=== PATIENT | female | born 1950 | race Caucasian/White ===

== ENCOUNTER 2020-08-02 17:16 | Emergency (ER) | payer MEDICARE, SELFPAY ==
[2020-08-02 17:31] VITALS: BP 158/73; PULSE 107; RESP 18; TEMP 36.7; O2SAT 97; BMI 25.3
--- NOTE | 2020-08-02 17:37 | HMH.EDUTC ---
[facility] [place] Impression: UTI (urinary tract infection) Qualifiers: Urinary tract infection type: site unspecified Hematuria presence: with hematuria Qualified Code(s): N39.0 - Urinary tract infection, site not specified; R31.9 - Hematuria, unspecified Disposition: Home, Self-Care Condition on Discharge: Good Instructions: Urinary Tract Infection, DI for Urinary Tract Infection (UTI), Phenazopyridine Additional Instructions: Drink plenty of fluids. Take tylenol or ibuprofen for pain or fever. Take the medications as directed. Follow up with your regular doctor. GO TO THE ER FOR ANY WORSENING SYMPTOMS The pyridium will make your urine turn orange, this is an expected side effect. It will stain your clothes if it comes into contact with them. Prescriptions: Ondansetron [Zofran 4mg ODT] 4 mg PO Q8HP PRN #10 tab.rapdis PRN Reason: Nausea Transmission Status: Pending to [id number] Ciprofloxacin HCl [Cipro 500mg Tab] 500 mg PO BID 7 Days #14 tab Transmission Status: Pending to [facility] Phenazopyridine HCl [Pyridium 200mg Tablet] 200 pow PO TID #6 tab Transmission Status: Pending to [id number] Referrals: Jayden Christie MD [Primary Care Provider] - Time of Disposition: 17:50 Medical Decision Making - Medical Records Medical records reviewed: No: I reviewed the patient's medical records. - Charles Inquiry Pt receiving controlled substance: No Vital Signs: 08/02/20 17:31 Temperature 98.1 F Temperature Source Oral Pulse Rate [Radial] 107 H Respiratory Rate 18 Blood Pressure [Right Arm] 158/73 H Blood Pressure Mean [Right Arm] 101 Blood Pressure Source [Right Arm] Automatic Cuff Blood Pressure Position [Right Arm] Sitting 02 Sat by Pulse Oximetry 97 Oxygen Delivery Method Room Air - Lab Data Lab results reviewed: Yes: I reviewed the patient's lab results. [facility] [place] - General Stated complaint: possible uti Time Seen by Provider: 08/02/20 17:37 Mode of Arrival: Ambulatory Source of Information: Patient Limitations: No Limitations Description of Symptoms (Recalled from Triage Doc. by RN): Thinks she has a UTI. Feels pressure HEENT Symptoms (Recalled from RN notes): No Resp Symptoms (Recalled from RN notes): No Skin Symptoms (Recalled from RN notes): No MS Symptoms (Recalled from RN notes): No Functional Status (Recalled from RN notes): wnl - History of Present Illness Provider Complaint: She states that for the past 2 days she has been having dysuria and urinary frequency. She denies any fever or other complaints. - Related Data Home Medications Medication Instructions Recorded Confirmed Levothyroxine Sodium 50 mcg PO DAILY 04/18/18 09/17/18 [Levothyroxine 50mcg (0.05mg) Tab] Lisinopril/Hydrochlorothiazide 1 tab PO DAILY 04/18/18 09/17/18 [Lisinopril-Hctz 10-12.5 mg Tab] Previous Rx's Medication Instructions Recorded hydrOXYzine pamoate [Vistaril] 25 mg PO Q6HP PRN #30 cap 07/02/19 Ciprofloxacin HCl [Cipro 500mg 500 mg PO BID 7 Days #14 tab 08/02/20 Tab] Ondansetron [Zofran 4mg ODT] 4 mg PO Q8HP PRN #10 tab.rapdis 08/02/20 Phenazopyridine HCl [Pyridium 200 pow PO TID #6 tab 08/02/20 200mg Tablet] Allergies Allergy/AdvReac Type Severity Reaction Status Date / Time Sulfa (Sulfonamide Allergy Verified 09/03/18 09:58 Antibiotics) - Worker's Comp Is this a Worker's Comp case?: No [facility] History - Hepatitis A Screen Drug use history?: No High risk sexual behaviors?: No History of sexually transmitted infection?: No Currently employed?: No Childcare worker?: No Do you have indoor plumbing?: Yes Do you have electricity?: Yes Attestation statement:: This patient has been screened for Hepatitis A risk factors. I have reviewed the patient's past medical history: Yes Medical History: Reports:: Hypertension Denies:: Diabetes Mellitus Type 1, Diabetes Mellitus Type 2 Later
[2020-08-02 18:16] LABS: Apearance,Urine Clear (Clear); Color,Urine Yellow (Yellow); Glucose,Urine (UA) Negative (Negative); PH,Urine 5.5 (5.0-8.5); Protein,Urine Negative (Negative)
[2020-08-02 18:17] LABS: Bilirubin,Urine Negative (Negative); Blood, Urine Trace (Negative); Ketones,Urine Negative (Negative); UTC Leukocyte Esterase,Urine 1+ (Negative); UTC Nitrate,Urine Negative (Negative); Urobilinogen,Urine 0.2 EU/dl (0.2)
[2020-08-02 18:20] VITALS: BP 158/73; PULSE 107; RESP 18; TEMP 36.7; O2SAT 97
== END 2020-08-02 18:21 | disposition home or self-care (01) ==
PROVIDERS: Emergency Provider Nurse Practitioner Family; PCP Internal Medicine Adolescent Medicine
DX: N30.00 Acute cystitis without hematuria (principal); I10 Essential (primary) hypertension; Z90.49 Acquired absence of other specified parts of digestive tract; Z88.2 Allergy status to sulfonamides
CPT/HCPCS: 81003; 87086; 87088; 87186; 99201

== ENCOUNTER → 2020-09-07 07:52 | Outpatient (CLI) | payer MEDICARE, SELFPAY ==
--- NOTE | 2020-09-07 07:55 | MM_ITS ---
PROCEDURE: MM DIG SCREENING MAMM BI W/CAD Digital Breast Tomosynthesis Included CLINICAL INDICATION: SCREENING There is no personal or family history of breast cancer. There has been a previous biopsy right breast for benign disease. COMPARISON: MG DMSB DIGITAL MAMM-SCREEN BILATERAL from 10/07/2012 MG DMSB DIG MAMM-SCREEN DEVANTE from 06/15/2016 MG DMDXUAVR DIG MAMM-DX UNI ADD VIEWS-RT from 06/27/2016 TECHNIQUE: Standard CC and MLO images and 3D Tomosynthesis was obtained. R2 CAD reviewed. FINDINGS: Moderate scattered fibroglandular densities are seen in the central portions of both breasts. There has been some slight interval fatty replacement of the breast parenchyma when compared to the most recent study 06/15/2016. There is faint arterial calcification in each breast. There is a small benign-appearing nodular lesion just deep to the nipple right breast and there are 2 similar small benign-appearing nodular lesions central portion left breast. There is no suspicious lesion in either breast and no suspicious microcalcifications. IMPRESSION: Moderate diffuse breast density with no suspicious lesions seen BI-RAD Category: 2 Benign Finding(s) FOLLOW-UP: 1YR 1 Year Follow-up (A letter has been sent to the patient regarding results of the study.) Dictated by: Dr. Rene Rivera MD 09/08/2020 12:25 Dr. Rene Rivera MD in [place] 09/08/2020 12:25
== END ==
PROVIDERS: PCP Internal Medicine Adolescent Medicine; Visit Provider Obstetrics & Gynecology Gynecology
DX: Z12.31 Encounter for screening mammogram for malignant neoplasm of breast (principal)
CPT/HCPCS: 77063; 77067

== ENCOUNTER 2021-06-21 15:48 | Emergency (ER) | payer MEDICARE, SELFPAY ==
[2021-06-21 16:00] VITALS: BP 127/62; PULSE 95; RESP 16; TEMP 37.1; O2SAT 98; BMI 23.3
[2021-06-21 16:21] VITALS: BP 127/62; PULSE 95; RESP 16; TEMP 37.1; O2SAT 98; BMI 23.3
--- NOTE | 2021-06-21 17:05 | HMH.EDUTC ---
[facility] [place]: Subconjunctival hemorrhage Qualifiers: Laterality: left Qualified Code(s): H11.32 - Conjunctival hemorrhage, left eye Disposition: Home, Self-Care Condition on Discharge: Good Instructions: DI for Subconjunctival Hemorrhage Additional Instructions: Follow up with your primary care doctor. If you begin to have eye pain, decreased vision or any other concerning symptom, please return and go to the ER. Read the Subconjunctival hemorrhage hand out that we gave you. It will answer most of your questions. Referrals: Jayden Christie MD [Primary Care Provider] - Time of Disposition: 17:13 Medical Decision Making - Medical Records Medical records reviewed: No: I reviewed the patient's medical records. - Charles Inquiry Pt receiving controlled substance: No Vital Signs: 06/21/21 16:00 06/21/21 16:21 06/21/21 17:20 Temperature 98.7 F 98.7 F 98.7 F Temperature Source Oral Oral Pulse Rate 95 H Pulse Rate [Left Radial] 95 H 95 H Respiratory Rate 16 16 16 Blood Pressure 127/62 Blood Pressure [Left Arm] 127/62 127/62 Blood Pressure Mean [Left Arm] 83 83 Blood Pressure Source [Left Arm] Automatic Cuff Automatic Cuff Blood Pressure Position [Left Arm] Sitting Sitting 02 Sat by Pulse Oximetry 98 98 Oxygen Delivery Method Room Air Room Air [facility] [place] - General Stated complaint: busted blood vessel in lt eye Time Seen by Provider: 06/21/21 17:05 Mode of Arrival: Ambulatory Source of Information: Patient Limitations: No Limitations Description of Symptoms (Recalled from Triage Doc. by RN): PATIENT C/O POSSIBLE BUSTED BLOOD VESSEL TO LEFT EYE THAT SHE NOTICED AFTER TAKING HER DOG TO PARK THIS MORNING. C/O STINGING FEELING TO EYE, NO CHANGE IN VISION. REPORTS THAT SHE IS NOT ON BLOOD THINNERS. VISION CHECKED: DEVANTE EYES 20/25, RIGHT EYE 20/25, LEFT EYE 20/25 HEENT Symptoms (Recalled from RN notes): Yes Resp Symptoms (Recalled from RN notes): No Skin Symptoms (Recalled from RN notes): No MS Symptoms (Recalled from RN notes): No Functional Status (Recalled from RN notes): WNL - History of Present Illness Provider Complaint: She states that earlier today she was on a walk and she felt a mild irritation to her left eye. When she got home she looked in the mirror and noticed there was blood in the white of her eye. She denies any eye pain. She denies any decreased vision in that eye. She does not take blood thinners. - Related Data Home Medications Medication Instructions Recorded Confirmed Levothyroxine Sodium 50 mcg PO DAILY 04/18/18 06/21/21 [Levothyroxine 50mcg (0.05mg) Tab] lisinopriL [Lisinopril] 10 mg PO DAILY 06/21/21 06/21/21 Allergies Allergy/AdvReac Type Severity Reaction Status Date / Time Sulfa (Sulfonamide Allergy Verified 09/03/18 09:58 Antibiotics) - Worker's Comp Is this a Worker's Comp case?: No [facility] History - Hepatitis A Screen Drug use history?: No High risk sexual behaviors?: No History of sexually transmitted infection?: No Currently employed?: No Childcare worker?: No Do you have indoor plumbing?: Yes Do you have electricity?: Yes Attestation statement:: This patient has been screened for Hepatitis A risk factors. I have reviewed the patient's past medical history: Yes Medical History: Reports:: Hypertension Denies:: Diabetes Mellitus Type 1, Diabetes Mellitus Type 2 Laterality Cases: Bilateral: Tonsillectomy Other Surgeries: Yes: Cholecystectomy, Tubal Ligation, Other (knee) Fractures: Yes (FOOT) - Social History Smoking Status: Never smoker Alcohol Intake: never Substance Use Type: denies use Occupational Status: other Family Hx:: Heart Attack, Hypertension ROS Obtained: Yes All systems reviewed & no additional complaints - Constitutional Constitutional: Denies chills, Denies fever(s) - Eyes Eyes: Reports as per HPI - ENT Ears, Nose, Mouth, and Throat: Denies dizziness, Denies otalgia - [facility]
[2021-06-21 17:20] VITALS: BP 127/62; PULSE 95; RESP 16; TEMP 37.1; O2SAT 98
== END 2021-06-21 17:21 | disposition home or self-care (01) ==
PROVIDERS: Emergency Provider Nurse Practitioner Family; PCP Internal Medicine Adolescent Medicine
DX: H11.32 Conjunctival hemorrhage, left eye (principal); I10 Essential (primary) hypertension
CPT/HCPCS: G0463; 99202

== ENCOUNTER → 2021-09-22 15:57 | Outpatient (CLI) | payer MEDICARE, SELFPAY ==
--- NOTE | 2021-09-22 16:00 | MM_ITS ---
PROCEDURE INFORMATION: Exam: MG Bilateral Screening 3D Mammography Exam date and time: 09/22/2021 4:00 PM Age: 71 years old Clinical indication: Screening exam; No personal or family HX of malignancy TECHNIQUE: Imaging protocol: Bilateral screening tomosynthesis and 2D mammography including computer-aided detection (CAD) when performed. COMPARISON: 1. MG MM DIG SCREENING MAMM BI W/CAD 09/07/2020 8:06 AM 2. MG DMDXUAVR DIG MAMM-DX UNI ADD VIEWS-RT 06/27/2016 1:22 PM FINDINGS: MAMMOGRAPHY: Breast composition: The breast tissue is heterogeneously dense, which may obscure small masses. Mass: None. Architectural distortion: None. Calcifications: No suspicious calcifications. Asymmetric density: None. Skin thickening: None. Axillary adenopathy: None. IMPRESSION: No mammographic evidence of malignancy. Annual screening is recommended unless otherwise clinically indicated. ASSESSMENT: BI-RADS Category 1: Negative
== END ==
PROVIDERS: PCP Internal Medicine Adolescent Medicine; Visit Provider Internal Medicine Adolescent Medicine
DX: Z12.31 Encounter for screening mammogram for malignant neoplasm of breast (principal)
CPT/HCPCS: 77063; 77067

== ENCOUNTER → 2021-10-13 09:31 | Outpatient (CLI) | payer MEDICARE, SELFPAY ==
[2021-10-13 10:01] LABS: Basophils # 0.1 K/mm3 (0-0.2); Basophils % 1.4 % (0.1-2.0); Eosinophils # 0.1 K/mm3 (0.0-0.4); Eosinophils % 2.3 % (0.1-12.0); Hemoglobin 13.7 g/dL (12.2-16.2); Lymphocytes # 1.3 K/mm3 (0.7-4.5); Lymphocytes % 24.1 % (10-50); Mean Corpuscular HGB Conc 33.4 g/dL (31.8-35.4); Mean Corpuscular Hemoglobin 31.2 pg (27.0-31.2); Mean Corpuscular Volume 93.4 fl (81-99); Mean Platelet Volume 8.3 fl (7.4-10.4); Monocytes # 0.3 K/mm3 (0.1-1.0); Monocytes % 5.5 % (1.7-9.3); Neutrophils # 3.7 K/mm3 (1.8-7.8); Neutrophils % 66.6 % (37.0-80.0); Platelet Count 361 K/mm3 (142-424); Red Blood Count 4.39 M/mm3 (4.20-5.40); Red Cell Distribution Width 12.7 % (11.5-17.5); White Blood Count 5.5 K/mm3 (4.8-10.8)
[2021-10-13 10:32] LABS: Alanine Aminotransferase 28 U/L (12-78); Albumin Level 4.5 g/dl (3.5-5.0); Alkaline Phosphatase 93 U/L (38-126); Anion Gap 8.9 mEq/L (5-15); Aspartate Amino Transferase 35 U/L (14-36); Bilirubin,Total 0.2 mg/dl (0.2-1.3); Blood Urea Nitrogen 14 mg/dl (7-17); Calcium 10.2 mg/dl (8.4-10.2); Carbon Dioxide 32 mmol/L (22.0-30.0); Chloride 104 mmol/L (98-107); Cholesterol 208 mg/dl (140-200); Estimated Glomerular Filt Rate 83 ml/min (>60); GFR (African American) 100 ML/MIN (>60); Globulin 2.3 g/dL (1.3-3.2); Glucose 99 mg/dl (74-100); HDL Cholesterol 70 mg/dl (40-60); Potassium 4.9 mmoL/L (3.5-5.1); Sodium 140 mmol/L (136-145); Total Protein,Serum 6.8 g/dl (6.3-8.2); Triglycerides 87 mg/dl (30-150); VLDL Cholesterol 17 mg/dL (0-40)
[2021-10-13 10:42] LABS: Direct LDL Cholesterol 104.31 mg/dL (100-129)
[2021-10-13 10:48] LABS: Triiodothryronine (T3) Uptake 28 % (23.5-40.5)
[2021-10-13 10:49] LABS: Free Thyroxine Index 3.3 ug/dL (5.93-13.13); T4 (Thyroxine) 11.8 ug/dl (5.53-11.0)
[2021-10-13 11:03] LABS: Thyroid Stimulating Hormone 1.79 uIU/mL (0.465-4.68)
== END ==
PROVIDERS: Visit Provider Internal Medicine Adolescent Medicine
DX: E03.9 Hypothyroidism, unspecified (principal); E78.5 Hyperlipidemia, unspecified
CPT/HCPCS: 36415; 80053; 80061; 84436; 84443; 84479; 85025

== ENCOUNTER → 2022-09-29 07:39 | Outpatient (CLI) | payer MEDICARE, SELFPAY ==
--- NOTE | 2022-09-29 07:46 | MM_ITS ---
PROCEDURE INFORMATION: Exam: MG Bilateral Screening 3D Mammography Exam date and time: 09/29/2022 7:53 AM Age: 72 years old Clinical indication: Screening examination. No family history of breast cancer. TECHNIQUE: Imaging protocol: Bilateral Screening tomosynthesis and 2D mammography including computer-aided detection (CAD) when performed. COMPARISON: 1. MG MM DIG SCREENING MAMM BI W/CAD 09/22/2021 4:19 PM 2. MG MM DIG SCREENING MAMM BI W/CAD 09/07/2020 8:06 AM 3. MG DMDXUAVR DIG MAMM-DX UNI ADD VIEWS-RT 06/27/2016 1:22 PM 4. MG DMSB DIG MAMM-SCREEN DEVANTE 06/15/2016 10:55 AM FINDINGS: MAMMOGRAPHY: Breast composition: The breasts are heterogeneously dense, which may obscure small masses. Mass: None. Architectural distortion: None. Calcifications: No suspicious calcifications. Asymmetric density: None. Skin thickening: None. Axillary adenopathy: None. IMPRESSION: No mammographic evidence of malignancy. Annual screening is recommended unless otherwise clinically indicated. ASSESSMENT: BI-RADS Category 1: Negative
== END ==
PROVIDERS: PCP Internal Medicine Adolescent Medicine; Visit Provider Internal Medicine Adolescent Medicine
DX: Z12.31 Encounter for screening mammogram for malignant neoplasm of breast (principal)
CPT/HCPCS: 77063; 77067

== ENCOUNTER 2022-10-13 09:38 | Day surgery (SDC) | payer MEDICARE, SELFPAY ==
[2022-10-09 13:48] VITALS: BMI 23.3
[2022-10-13 10:01] VITALS: BP 108/87; PULSE 89; RESP 18; TEMP 36.7; O2SAT 98
--- NOTE | 2022-10-13 10:11 | P.PN_ITS ---
[facility] Disclaimer: The information contained in this section may have been updated after the patient was seen, as this information can be updated by other users. Medical History Allergies Cholecystectomy planned Hypertension Hypothyroid Sinus headache Tonsillectomy planned Urinary tract infection Surgical History History of surgery History of surgery Family History Daughter Polycystic kidney disease Mother Colon cancer Father Heart attack Social History Smoking Status: Former smoker alcohol intake: never substance use type: denies use current occupational status: retired Travel in the last 8 weeks: None [facility] Anesthesia Checklist Patient Identification Patient Identification: Arm Band and Verbal (Name & ) Structural Data Admitted From: Home Planned Operative Procedure/s: Colonoscopy Consent for Planned Operative Procedure(s) Verified: Yes NPO Status Verified Time NPO: 00:00 Chart Verification Results Verified: CBC and BMP Airway Assessment C-Spine Mobility Assessed: Yes TMJ Mobility Assessed: Yes Dentition: Good Dentition Neurological Assessment Level of Consciousness: Awake Hx Seizures: No Numbness or tingling in extremities: No Anesthesia Plan Anesthesia Plan: Verified ASA Class: II Anesthesia Type: MAC
[2022-10-13 10:35] VITALS: O2SAT 98
[2022-10-13 11:11] VITALS: BP 80/49; PULSE 79; RESP 18; TEMP 36.4; O2SAT 96
--- NOTE | 2022-10-13 11:11 | HMH.SCOPE ---
Procedure: Date: 10/13/22 Patient Date of :: 1950 Procedure Performed:: Total colonoscopy with polypectomy by biopsy Indications:: Patient is a 72-year-old female. She has a family history of her mother having colon cancer in her 50s. She had undergone colonoscopy with Dr. Tin Silvestre in 2008. I performed colonoscopy 07/25/2016 at which time she had diverticulosis and sigmoid polyp. 3 to 5-year follow-up colonoscopy was recommended. Performing Provider:: Maximino Norris MD Referring Provider:: Jayden Christie MD Sedation:: MAC sedation Procedure:: Patient history was obtained and appropriate physical examination was performed. Patient's medications and allergies were reviewed. Informed consent was obtained after explaining the benefits, alternatives, and risks of the procedure including, but not limited to, bleeding, perforation, missed lesions, and adverse reaction to anesthesia medications. Patient was transported to endoscopy procedure room. Patient was connected to monitoring devices. Throughout the procedure the patient's blood pressure, pulse, and oxygen saturations were monitored continuously. Patient identification and planned procedure were verified by the staff. Patient was positioned in lateral decubitus position. Digital anorectal exam was performed. Variable stiffness Olympus colonoscope was inserted and advanced under direct visualization to the cecum. Adequacy of the colonic preparation was noted. The colonoscope was advanced a short distance into the ileocecal valve. The colonoscope was then slowly withdrawn while carefully examining the color, texture, anatomy, and integrity of the mucosoa circumferentially. Within the rectum retroflexion was performed. Colonoscope was then withdrawn. Impression: Colonic preparation was good. There was a subtle irregularity in the sigmoid which was biopsied, potential lymphoid aggregate versus normal colon. There was a diminutive hyperplastic appearing rectosigmoid polyp removed with biopsy forceps. She had significant pandiverticulosis. Findings:: Significant pandiverticulosis Minor tiny diminutive mucosal irregularity sigmoid colon biopsied Hyperplastic appearing rectosigmoid polyp removed with biopsy forceps Recommendations:: Likely repeat colonoscopy 5 years. However, consideration could be given for possible Cologuard testing at that time. Complications:: None immediately apparent Estimated blood obtained (mL): 1
[2022-10-13 11:21] VITALS: BP 123/59; PULSE 59; RESP 18; O2SAT 100
[2022-10-13 11:31] VITALS: BP 106/40; PULSE 69; RESP 18; O2SAT 99
[2022-10-13 11:41] VITALS: BP 118/60; PULSE 70; RESP 18; O2SAT 99
== END 2022-10-13 11:50 | disposition home or self-care (01) ==
PROVIDERS: PCP Internal Medicine Adolescent Medicine; Visit Provider Surgery
PROC: 0DJD8ZZ Inspection of Lower Intestinal Tract, Via Natural or Artificial Opening Endoscopic (ICD-10-PCS; principal; 2022-10-13 10:30)
DX: Z12.11 Encounter for screening for malignant neoplasm of colon (principal); K63.5 Polyp of colon; Z80.0 Family history of malignant neoplasm of digestive organs; Z86.010 Personal history of colon polyps; Z79.899 Other long term (current) drug therapy
CPT/HCPCS: 45380; 88305

== ENCOUNTER → 2023-02-26 09:26 | Outpatient (CLI) | payer MEDICARE, SELFPAY | PROVIDERS: PCP Internal Medicine Adolescent Medicine; Visit Provider Nurse Practitioner Family | DX: R00.2 Palpitations (principal) | CPT/HCPCS: 93270 ==

== ENCOUNTER → 2023-03-02 07:43 | Outpatient (CLI) | payer MEDICARE, SELFPAY | PROVIDERS: PCP Internal Medicine Adolescent Medicine; Visit Provider Nurse Practitioner Family | DX: R00.2 Palpitations (principal) | CPT/HCPCS: 93306 ==

== ENCOUNTER → 2023-10-16 06:31 | Outpatient (CLI) | payer MEDICARE, SELFPAY ==
--- NOTE | 2023-10-16 06:36 | NM_ITS ---
APPROVED REPORT Exam: Nuclear Stress Test Indication: palpitations Patient Location: Outpatient Stress Tech: Gema Bryant OR Tech:NICOLE Ponce RT (R)(N)(M) Ht: 5 ft 5 in Wt: 161 lbs Bra Size: b HR: 88 bpm BP: 156/67 mmHg BSA: 1.80 m2 Rhythm: NSR TID: 0.96 BMI: 26.7 History: patpitations Procedure: Patient received 0.4 mg of intravenous Lexiscan, resting heart rate 88 bpm, resting blood pressure 156/67 mmHg, with Lexiscan maximum heart rate achieved was 88 bpm which is 85 % of the maximum predicted heart rate and blood pressure was 156/67 mmHg. With Lexiscan, patient denied any complaint of chest pain. Cardiac Stress and Resting SPECT Images: Cardiac Stress and Resting SPECT images were obtained using technetium 99m Myoview 31.1 mCi stress and 10.89 mCi at rest. Resting and stress imaging in supine and prone positions demonstrate no evidence of fixed or reversible perfusion defects. Gated imaging demonstrates low normal global LV systolic function. LVEF is calculated at 52%. Conclusion: No evidence of fixed or reversible perfusion defects. Gated imaging demonstrates low normal global LV systolic function. LVEF is calculated at 52%. Of note, the LVEF may be inaccurate in the setting of frequent PVCs. Of note, the patient had frequent PVCs at baseline and after Lexiscan administration. Further evaluation of the PVC burden is recommended with 2-week rhythm monitor. Electronically signed by : Juana Noriega MD 10/18/2023 14:54:28
--- NOTE | 2023-10-16 10:09 | CA_ITS ---
APPROVED REPORT Exam: Pharmacologic Technologist: Gema Bryant Ht: 5 ft 6 in Wt: 161 lbs BSA: 1.82 m2 HR: 88 bpm BP: 156/57 mmHg Rhythm: NSR Indications: Abnormal ekg, Fatigue Medical History Medications: Lisinopril,,,,, Levothyroxine,,,,, BisOPROLOL,,,,, Stress Test Details Test: LEXISCAN HR Resting HR: 70 bpm Max Heart Rate (APMHR): 148 bpm Max HR Achieved: 110 bpm Target HR (85% APMHR): 126 bpm % of APMHR: 74 Recovery HR: 80 bpm BP Resting BP: 156.0/67.0 mmHg Max BP: 156.0/67.0 mmHg Recovery BP: 143.0/77.0 mmHg ECG Resting ECG: Sinus rhythm, Trigeminy PVCs Stress ECG: No significant ST changes Arrhythmia: Frequent PVCs, ventricular couplets Clinical Exercise duration: 04:19 min Highest Stage Achieved: Stress ECG Conclusion Symptoms: Headache Arrhythmias/Ectopy: Frequent PVCs, ventricular couplets ST-T Changes: No significant ST changes Conclusion: No significant ST changes after Lexiscan administration. Frequent PVCs at baseline and after Lexiscan administration. Myoview images are reported separately. Test Summary REST . . . . . . . Resting REST 03:26 . . 70 . 156/ 67 . . Stage 1 . . . . . . . Myoview Injected Stage 1 01:00 . . 100 . . . . Stage 2 01:00 . . 104 . 128/ 63 . . Stage 3 01:00 . . 93 . 147/ 66 . . Stage 4 01:00 . . 93 . 139/ 70 . . Stage 4 01:19 . . 79 . 139/ 70 . Stop exercise at 04:19 RECOVERY 01:00 . . 83 . 133/ 71 . . RECOVERY 02:00 . . 87 . 133/ 71 . . RECOVERY 03:00 . . 88 . 133/ 71 . . RECOVERY 03:38 . . 75 . 143/ 77 . . Electronically signed by : Juana Noriega MD 10/18/2023 14:52:42
== END ==
PROVIDERS: PCP Internal Medicine Adolescent Medicine; Visit Provider Nurse Practitioner
DX: I10 Essential (primary) hypertension (principal); R00.2 Palpitations; R53.83 Other fatigue; R94.31 Abnormal electrocardiogram [ECG] [EKG]
CPT/HCPCS: 78452; 93017; 93018; A9502; J2785

== ENCOUNTER → 2023-10-26 08:15 | Outpatient (CLI) | payer MEDICARE, SELFPAY ==
--- NOTE | 2023-10-26 08:18 | MM_ITS ---
PROCEDURE INFORMATION: Exam: MG Bilateral Screening 3D Mammography Exam date and time: 10/26/2023 8:17 AM Age: 73 years old Clinical indication: Screening mammogram TECHNIQUE: Imaging protocol: Bilateral Screening tomosynthesis and 2D mammography including computer-aided detection (CAD) when performed. COMPARISON: 1. MG MM DIG SCREENING MAMM BI W/CAD 09/29/2022 7:53 AM 2. MG MM DIG SCREENING MAMM BI W/CAD 09/22/2021 4:19 PM 3. MG MM DIG SCREENING MAMM BI W/CAD 09/07/2020 8:06 AM 4. MG DMDXUAVR DIG MAMM-DX UNI ADD VIEWS-RT 06/27/2016 1:22 PM FINDINGS: MAMMOGRAPHY: Breast composition: There are scattered areas of fibroglandular density. Mass: None. Architectural distortion: No new or suspicious architectural distortion. Calcifications: No new or suspicious calcifications are present Asymmetric density: No new or suspicious asymmetric density is present Skin thickening: None. Axillary adenopathy: None. IMPRESSION: No mammographic evidence of malignancy. Recommend annual screening mammography unless otherwise clinically indicated. ASSESSMENT: BI-RADS category 1: Negative
== END ==
PROVIDERS: PCP Internal Medicine Adolescent Medicine; Visit Provider Internal Medicine Adolescent Medicine
DX: Z12.31 Encounter for screening mammogram for malignant neoplasm of breast (principal)
CPT/HCPCS: 77063; 77067

== ENCOUNTER → 2023-10-29 09:42 | Outpatient (CLI) | payer MEDICARE, SELFPAY ==
[2023-10-29 10:19] LABS: Basophils % 0.6 % (0.1-2.0); Eosinophils # 0.2 K/mm3 (0.0-0.4); Eosinophils % 2.3 % (0.1-12.0); Hematocrit 41.8 % (37.0-47.0); Hemoglobin 14.1 g/dL (12.2-16.2); Lymphocytes # 1.4 K/mm3 (0.7-4.5); Lymphocytes % 21.7 % (10-50); Mean Corpuscular HGB Conc 33.8 g/dL (31.8-35.4); Mean Corpuscular Hemoglobin 31.5 pg (27.0-31.2); Mean Platelet Volume 7.3 fl (7.4-10.4); Monocytes # 0.3 K/mm3 (0.1-1.0); Monocytes % 4.8 % (1.7-9.3); Neutrophils # 4.6 K/mm3 (1.8-7.8); Neutrophils % 70.6 % (37.0-80.0); Platelet Count 318 K/mm3 (142-424); Red Blood Count 4.49 M/mm3 (4.20-5.40); Red Cell Distribution Width 12.8 % (11.5-17.5); White Blood Count 6.6 K/mm3 (4.8-10.8)
[2023-10-29 10:54] LABS: Alanine Aminotransferase 25 U/L (12-78); Albumin Level 4.7 g/dl (3.5-5.0); Albumin/Globulin Ratio 1.7 (1.1-1.8); Alkaline Phosphatase 76 U/L (38-126); Anion Gap 8.1 mEq/L (5-15); Aspartate Amino Transferase 33 U/L (14-36); Bilirubin,Total 0.3 mg/dl (0.2-1.3); Blood Urea Nitrogen 14 mg/dl (7-17); Calcium 9.9 mg/dl (8.4-10.2); Carbon Dioxide 31 mmol/L (22.0-30.0); Chloride 104 mmol/L (98-107); Chol/HDL Ratio 2.8 (1-3.5); Cholesterol 225 mg/dl (140-200); Estimated Glomerular Filt Rate 71 ml/min (>60); GFR (African American) 85 ML/MIN (>60); Globulin 2.7 g/dL (1.3-3.2); Glucose 102 mg/dl (74-100); HDL Cholesterol 80 mg/dl (40-60); Potassium 5.1 mmoL/L (3.5-5.1); Sodium 138 mmol/L (136-145); Total Protein,Serum 7.4 g/dl (6.3-8.2); Triglycerides 67 mg/dl (30-150); VLDL Cholesterol 13 mg/dL (0-40)
[2023-10-29 11:05] LABS: Direct LDL Cholesterol 119.55 mg/dL (100-129)
[2023-10-29 11:15] LABS: Free Thyroxine Index 3.3 ug/dL (5.93-13.13); T4 (Thyroxine) 11.1 ug/dl (5.53-11.0); Triiodothryronine (T3) Uptake 30 % (23.5-40.5)
== END ==
PROVIDERS: PCP Internal Medicine Adolescent Medicine; Visit Provider Internal Medicine Adolescent Medicine
DX: E03.9 Hypothyroidism, unspecified (principal); I10 Essential (primary) hypertension; I49.3 Ventricular premature depolarization; Z87.891 Personal history of nicotine dependence
CPT/HCPCS: 36415; 80053; 80061; 84436; 84443; 84479; 85025

== ENCOUNTER 2023-12-13 09:13 | Emergency (ER) | payer MEDICARE, SELFPAY ==
[2023-12-13 10:20] VITALS: PULSE 69; RESP 18; TEMP 36.7; O2SAT 97; BMI 27.3
--- NOTE | 2023-12-13 10:25 | EXP.UTC ---
Discharge Plan Disposition Patient Disposition: Home, Self-Care Condition: Good Prescriptions Prescriptions: New phenazopyridine [Pyridium] 200 mg tablet 200 mg PO Q8H 2 Days Qty: 6 0RF ciprofloxacin HCl [Cipro] 500 mg tablet 500 mg PO BID 7 Days Qty: 14 0RF No Action bisoprolol fumarate 5 mg tablet See Rx Instructions .ROUTE .COMPLEX Qty: 90 4RF Dose Instruction: Take 1 tablet by mouth once daily Rx Instructions: Take 1 tablet by mouth once daily levothyroxine 50 MCG tablet 50 mcg PO DAILY lisinopril 10 MG tablet 10 mg PO DAILY Referrals Follow up/Referrals: Jayden Christie MD [Primary Care Provider] - See instructions Activity Restrictions/Add. Instructions Additional Instructions/Restrictions: Drink plenty of fluids. Take tylenol or ibuprofen for pain or fever. Take the medications as directed. Follow up with your regular doctor. GO TO THE ER FOR ANY WORSENING SYMPTOMS The pyridium will make your urine turn orange, this is an expected side effect. It will stain your clothes if it comes into contact with them. We will culture the urine. That will tell what bacteria is causing your infection and which antibiotics will treat it best. Sometimes the first antibiotic we prescribe turns out to not work against different bacteria. So, make sure you follow up within 3 days if you are not getting better. Clinical Impressions Clinical Impression: UTI (urinary tract infection) Instructions Patient Instructions: Urine Culture, DI for Urinary Tract Infection (UTI), Phenazopyridine Discharge ED Provider: Alphonse May [facility] General Stated complaint: UTI Time Seen by Provider: 12/13/23 10:25 History of Present Illness Provider Complaint: She states that for the past 2 days she has had worsening dysuria, urinary frequency, and low back discomfort. Related Data Home Medications Medication Instructions Recorded Confirmed levothyroxine 50 mcg tablet 50 mcg PO DAILY THYROID 04/18/18 12/13/23 lisinopril 10 mg tablet 10 mg PO DAILY Hypertension 06/21/21 12/13/23 Previous Rx's Medication Instructions Recorded bisoprolol fumarate 5 mg tablet See Rx Instructions .Route 10/01/23 .COMPLEX #90 tabs ciprofloxacin HCl 500 mg tablet 500 mg PO BID 7 days #14 tabs 12/13/23 (Cipro) phenazopyridine 200 mg tablet 200 mg PO Q8H 2 days #6 tabs 12/13/23 (Pyridium) Allergies Allergy/AdvReac Type Severity Reaction Status Date / Time Sulfa (Sulfonamide Allergy Nausea Verified 11/13/23 08:41 Antibiotics) [facility] Disclaimer: The information contained in this section may have been updated after the patient was seen, as this information can be updated by other users. Medical History Allergies Cholecystectomy planned Hypertension Hypothyroid Palpitations Sinus headache Tonsillectomy planned Urinary tract infection Surgical History History of colonoscopy History of surgery RIGHT KNEE History of surgery HEART CATH Family History Daughter Polycystic kidney disease Mother Colon cancer Father Heart attack Social History Smoking Status: Former smoker alcohol intake: never substance use type: denies use current occupational status: retired Travel in the last 8 weeks: None ROS Obtained: Yes All systems reviewed & no additional complaints except as documented Constitutional Constitutional: Reports system reviewed and no additional complaints, except as documented, Denies chills and Denies fever(s) Eyes Eyes: Denies eye discharge ENT Ears, Nose, Mouth, and Throat: Denies dysphagia, Denies sore throat and Denies throat swelling Cardiovascular Cardiovascular: Denies chest pain and Denies dyspnea Respiratory Respiratory: Denies chest congestion, Denies cough and Denies dyspnea Gastrointestinal Gastrointestingal: Denies abdominal pain, constipation, diarrhea, dysphagia, nausea or vomiting Genitourinary Female Genitourinary: Reports as per HPI, Reports dysuria, Reports urinary frequency, Denies urinary incontinence, Reports urinary hesitancy and Reports urinary urgency Musculoskeletal Musculoskeletal: Denies arthralgias and Reports back pain Integumentary/Breasts Skin/Breast: Denies rash Neurologic Neurologic: Denies paresthesias Allergic/Immunologic Allergic/Immunologic: Denies throat swelling Physical Exam General General appearance: alert and in no apparent distress Head Head exam: atraumatic and normocephalic Eye Eye exam: Present normal appearance, PERRL and EOMI ENT ENT exam: Present normal exam, mucous membranes moist, TM's normal bilaterally and normal external ear exam Neck Neck exam: Present normal inspection, full ROM and trachea midline; Absent tenderness, meningismus or lymphadenopathy Chest Chest inspection: Present normal inspection and symmetric chest wall rise; Absent tenderness Respiratory Respiratory exam: Present normal lung sounds bilaterally; Absent respiratory distress, wheezes or stridor Cardiovascular Cardiovascular exam: Present regular rate, normal rhythm and normal heart sounds Abdominal Exam Abdominal exam: Present soft and normal bowel sounds; Absent distention, tenderness, guarding, rebound, rigidity, incision, psoas sign, obturator sign, heel tap sign, Garcia's sign, Rovsing's sign or tenderness at McBurney's Point Extremities Exam Extremities exam: Present normal inspection, full ROM and normal capillary refill; Absent tenderness, edema, joint swelling, calf tenderness or cyanosis Back Exam Back exam: Present normal inspection and full ROM; Absent tenderness, CVA tenderness (R) or CVA tenderness (L) Neurological Exam Neurological exam: Present alert, oriented X3 and normal gait Psychiatric Psychiatric exam: Present normal affect and normal mood Skin Skin exam: Present warm, dry, intact and normal color Lymphatic Lymphatic Findings: no adenopathy Medical Decision Making Medical Records Medical records reviewed: No I reviewed the patient's medical records. Charles Inquiry Pt receiving controlled substance: No Lab Data Lab results reviewed: Yes I reviewed the patient's lab results.
[2023-12-13 10:34] LABS: Apearance,Urine Clear (Clear); Bilirubin,Urine Negative (Negative); Blood, Urine 2+ (Negative); Color,Urine Yellow (Yellow); Glucose,Urine (UA) Negative (Negative); Ketones,Urine Negative (Negative); PH,Urine 5.5 (5.0-8.5); Protein,Urine Negative (Negative); Specific Gravity, Urine 1.005 (1.005-1.030); UTC Leukocyte Esterase,Urine 1+ (Negative); UTC Nitrate,Urine Negative (Negative); Urobilinogen,Urine 0.2 EU/dl (0.2)
[2023-12-13 10:49] VITALS: BP 178/88; PULSE 69; RESP 18; TEMP 36.7; O2SAT 97
== END 2023-12-13 10:48 | disposition home or self-care (01) ==
PROVIDERS: Emergency Provider Nurse Practitioner Family; PCP Internal Medicine Adolescent Medicine
DX: N39.0 Urinary tract infection, site not specified (principal); B96.89 Other specified bacterial agents as the cause of diseases classified elsewhere; M54.59 Other low back pain; I10 Essential (primary) hypertension; E03.9 Hypothyroidism, unspecified; Z87.891 Personal history of nicotine dependence
CPT/HCPCS: 81003; 87086; 99212; 99214; G0463

== ENCOUNTER 2024-10-28 09:51 | Outpatient (CLI) | payer MEDICARE, SELFPAY ==
--- NOTE | 2024-10-28 09:56 | MM_ITS ---
PROCEDURE INFORMATION: Exam: MG Bilateral Screening 3D Mammography Exam date and time: 10/28/2024 9:41 AM Age: 74 years old Clinical indication: Screening examination TECHNIQUE: Imaging protocol: Bilateral Screening tomosynthesis and 2D mammography including computer-aided detection (CAD) when performed. COMPARISON: 1. MG MM DIG SCREENING MAMM BI W/CAD 10/26/2023 8:17 AM 2. MG MM DIG SCREENING MAMM BI W/CAD 09/29/2022 7:53 AM FINDINGS: MAMMOGRAPHY: Breast composition: There are scattered areas of fibroglandular density. Mass: No suspicious masses. Architectural distortion: None. Calcifications: No suspicious calcifications. Asymmetric density: None. Skin thickening: None. Axillary adenopathy: None. IMPRESSION: No mammographic evidence of malignancy. Annual screening is recommended unless otherwise clinically indicated. ASSESSMENT: BI-RADS Category 1: Negative.
== END 2024-10-28 23:59 | disposition home or self-care (01) ==
LOC: RAD 09:53
PROVIDERS: PCP Internal Medicine Adolescent Medicine; Visit Provider Obstetrics & Gynecology Gynecology
DX: Z12.31 Encounter for screening mammogram for malignant neoplasm of breast (principal)
CPT/HCPCS: 77063; 77067

== ENCOUNTER 2025-05-11 08:33 | Outpatient (CLI) | payer MEDICARE, SELFPAY ==
--- OUTSIDE RECORDS SUMMARY | 2025-05-11 08:36 | XMS_ITS | Clinical Summary ---
Author Organization Healthcare Address [address] [place] [address] Care Team Providers Care Vice President For Instruction Name Role Phone Unavailable Primary Care Provider Unavailabl e Social History Tobacco Use Types Packs/Day Years Used Date Smoking Tobacco: Never Assessed Comments Unknown Sex and Gender Information Value Date Recorded Sex Assigned at Not on file Legal Sex Female 7:41 PM EDT Gender Identity Not on file Sexual Orientation Not on file Plan of Treatment Health Maintenance Due Date Last Done Comments [facility]-Bone Density Scan 1951 [facility]-Depression Screening 1950 [facility]-Infant/Child/Adol SDOH Screenings 1950 [facility]- SDOH Screenings 1969 [facility]-Adult SDOH Screenings 1969 CT Colonography 1996 Colonoscopy 1996 FIT-DNA 1996 FIT 1996 FOBT 1996 Sigmoidoscopy 1996 [facility]-Colorectal Cancer Screening 1996 [facility]-DTaP,Tdap,and Td Vaccine s (1 - Tdap) 01/16/1997 01/15/1997 [facility]-Zoster Vaccines (1 of 2) 2001 [id number] Vaccine (2 - season) 2024 03/31/2021 [facility]-Influenza Vaccine (Seaso n Ended) 2025 [facility]-RSV Vaccine: 60+ Years o r (1 - 1-dose 75+ series) 2026 [facility]-Pneumococcal Vaccine: 50 + Years Completed 11/15/2020, 12/25/2016 HPV Vaccines Aged Out No longer eligi ble based on patient's age to complete this topic [facility]-HIB Vaccines Aged Out No longer e ligible based on patient's age to complete this topic [facility]-Hepatitis A Vaccines Aged Out No longer eligible based on patient's age to complete this topic [facility]-IPV Vaccines Aged Out No longer e ligible based on patient's age to complete this topic [facility]-Rotavirus Vaccines Aged Out No lo nger eligible based on patient's age to complete [place] [address] [address] MEDICARE
--- NOTE | 2025-05-11 08:37 | XR_ITS ---
FINAL REPORT CLINICAL HISTORY: SCREENING COMPARISON: None FINDINGS: Using L1-4, the bone mineral density of the spine is 0.71 g/cm2, corresponding to T-score of -2.4. Using the left hip, the bone mineral density of the femoral neck is 0.632 g/cm2, corresponding to a T-score of -2.5. Using the right hip, the bone mineral density of the femoral neck is 0.541 g/cm2, corresponding to a T-score of -2.8. NOTE: T-score: Standard deviation compared with peak bone mass of young adult mean. *Following the recommendations of the International Society of Bone densitometry, classification of hip BMD is based on the lower of two T-scores; total hip or femoral neck. IMPRESSION: Diminished bone mineral density of the bilateral hips, consistent with osteoporosis. Diminished bone mineral density of the lumbar spine, consistent with osteopenia. Reviewed, Interpreted and Dictated by Timo Cox MD Transcribed by Saba Leiva Authenticated and [facility]
== END 2025-05-11 23:59 | disposition home or self-care (01) ==
LOC: RAD 08:34
PROVIDERS: PCP Internal Medicine Adolescent Medicine; Visit Provider Internal Medicine Adolescent Medicine
DX: M81.0 Age-related osteoporosis without current pathological fracture (principal); M85.88 Other specified disorders of bone density and structure, other site; E21.3 Hyperparathyroidism, unspecified; Z13.9 Encounter for screening, unspecified
CPT/HCPCS: 77080

== ENCOUNTER 2025-10-30 09:38 | Outpatient (CLI) | payer MEDICARE, SELFPAY ==
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
--- NOTE | 2025-10-30 09:41 | MM_ITS ---
PROCEDURE INFORMATION: Exam: MG Bilateral Screening 3D Mammography Exam date and time: 10/30/2025 9:58 AM Age: 75 years old Clinical indication: Screening examination TECHNIQUE: Imaging protocol: Bilateral Screening tomosynthesis and 2D mammography including computer-aided detection (CAD) when performed. COMPARISON: 1. MG MM DIG SCREENING MAMM BI W/CAD 10/28/2024 9:41 AM 2. MG MM DIG SCREENING MAMM BI W/CAD 10/26/2023 8:17 AM FINDINGS: MAMMOGRAPHY: Breast composition: There are scattered areas of fibroglandular density. Mass: None. Architectural distortion: None. Calcifications: No suspicious calcifications. Asymmetric density: None. Skin thickening: None. Axillary adenopathy: None. IMPRESSION: No mammographic evidence of malignancy. Annual screening is recommended unless otherwise clinically indicated. ASSESSMENT: BI-RADS Category 1: Negative.
--- OUTSIDE RECORDS SUMMARY | 2025-10-30 09:41 | XMS_ITS | Encounter Summary ---
Author Organization [facility] Address [address] [place] [address] Care Team Providers Care High Risk Case Manager Name Role Phone Jaydne Christie MD Primary Care Provider [phone] Reason for Referral * Consultation (Routine) - Closed Specialty Diagnoses / Procedures Referred By Contac t Referred To Contact General, Endocrine & Minimally Invasive Surgery / General Surgery Diagnoses Hyperparathyroidism, unspecified (CMS/HCC) Jayden Christie MD [id number] [facility] [address] [place] [address] Phone: tel: fax: Anna Glover MD [address] [address] Phone: tel: fax: Referral ID Status Reason Start Date Expiration Date V isits Requested Visits Authorized [id number] Closed Specialty Services Required 05/20/2025 11/19/2026 1 1 Encounter Details Date Type Department Care Team (Late st Contact Info) Description 05/20/2025 Community [facility] [address] [place] [address] Jayden Christie MD [address] [facility] [address] [facility] [address] [place] [address] Hyperparathyroidism, unspecified (CMS/HCC) (Primary Dx) Social History Tobacco Use Types Packs/Day Years Used Date Smoking Tobacco: Never Assessed Comments Unknown Sex and Gender Information Value Date Recorded Sex Assigned at Not on file Legal Sex Female 7:41 PM EDT Gender Identity Not on file Sexual Orientation Not on file documented as of this encounter Plan of Treatment Scheduled Referrals Name Type Priority Associated Diagnoses Orde r Schedule Ambulatory Referral to ENT Outpatient Referral Routine Hyperparathyroidism, unspecified ([facility]) Expected: 05/20/2025 (Approximate), Expires: 11/21/2026 documented as of this encounter Visit Diagnoses Diagnosis Hyperparathyroidism, unspecified ([facility])- Primary Hyperparathyroidism, unspecified documented in this encounter Care Teams High Risk Case Manager Relationship Specialty Start Date End Date Jayden Christie MD [address] [place] [address] PCP - General Internal Medicine 05/29/25 documented as of this encounter
--- OUTSIDE RECORDS SUMMARY | 2025-10-30 09:41 | XMS_ITS | Encounter Summary ---
Author Organization [facility] Address [address] [place] [address] Care Team Providers Care Backup Engineer Name Role Phone Jayden Christie MD Primary Care Provider [phone] Encounter Details Date Type Department Care Team (Late st Contact Info) Description 05/11/2025 Orders Only External Location [address] [place] [address] Provider, External Social History Tobacco Use Types Packs/Day Years Used Date Smoking Tobacco: Never Assessed Comments Unknown Sex and Gender Information Value Date Recorded Sex Assigned at Not on file Legal Sex Female 7:41 PM EDT Gender Identity Not on file Sexual Orientation Not on file documented as of this encounter Plan of Treatment Not on file documented as of this encounter Procedures Procedure Name Priority Date/Time Associated Diagnosis Comments XR MSK OUTSIDE IMAGES 05/11/2025 9:29 AM EDT documented in this encounter Results * XR MSK OUTSIDE IMAGES (05/11/2025 9:29 AM EDT) Anatomical Region Laterality Modality Radiographic Natalie ging 05/11/2025 9:29 AM EDT us External Provider IMG XR PROCEDURES Final Result documented in this encounter Visit Diagnoses Not on filedocumented in this encounter Care Teams Backup Engineer Relationship Specialty Start Date End Date Jayden Christie MD [address] [place] [address] PCP - General Internal Medicine 05/29/25 documented as of this encounter
--- OUTSIDE RECORDS SUMMARY | 2025-10-30 09:41 | XMS_ITS | Encounter Summary ---
Author Organization [facility] Address [address] [place] [address] Care Team Providers Care Management Scientist Name Role Phone Jayden Christie MD Primary Care Provider + [phone] Encounter Details Date Type Department Care Team (Late st Contact Info) Description 09/15/2025 Orders Only External Location [address] [place] [address] Provider, External Social History Tobacco Use Types Packs/Day Years Used Date Smoking Tobacco: Never Smokeless Tobacco: Never Alcohol Use Standard Drinks/Week Comments Never 0 [...] week 09/15/2025 How often do you attend [facility] or sikhism services? More than 4 times per year 09/15/2025 Do you belong to any clubs o r organizations such as sabianism groups, unions, fraternal or athletic groups, or [...] and heating? Not hard at all 09/15/2025 [facility] - Occupational Stress [...] any time in the past 12 m [place], were you homeless or living in a chcf (including now)? No 09/15/2025 [facility] Utilities Answer Date Recorded In the [...] on file documented as of this encounter Functional Status * AUDIT-C Score Answer Date of Assessment Author 0 09/15/2025 12:33 PM Gerald Pineda * Question Answer Date of Assessment Author Q1: How often do you have a drink containing alcohol? Never 09/15/2025 12:33 PM Gerald Palomo Q2: How many drinks containing alcohol do you have on a typical day when you are drinking? Patient does not drink 09/15/2025 12:33 PM Gerald Palomo Q3: How often do you have six or more drinks on one occasion? Never 09/15/2025 12:33 PM Gerald Palomo documented as of this encounter Plan of Treatment Not on file documented as of this encounter Procedures Procedure Name Priority Date/Time Associated Diagnosis Comments POC ULTRASOUND 09/15/2025 documented in this encounter Results * POC Imaging (09/15/2025) Anatomical Region Laterality Modality Pelvis Other 09/15/2025 us External Provider IMG POINT OF CARE ULTRASOUND F inal Result documented in this encounter Visit Diagnoses Not on filedocumented in this encounter Additional Health Concerns Assessment Noted Time A fall risk assessment has been complete d for the patient 09/15/2025 12:39 PM EST A Body Mass Index follow-up plan has been documented for the patient 09/16/2025 1:33 PM EST documented as of this encounter Care Teams Management Scientist Relationship Specialty Start Date End Date Jayden Christie MD [address] [place] [address] PCP - General Internal Medicine 05/29/25 documented as of this encounter
--- OUTSIDE RECORDS SUMMARY | 2025-10-30 09:41 | XMS_ITS | Encounter Summary ---
Author Organization [facility] Address [address] [place] [address] Care Team Providers Care Capsule Machine Operator Name Role Phone Jayden Christie MD Primary Care Provider [phone] Encounter Details Date Type Department Care Team (Latest Contact Info) Description 09/10/2025 Travel Social History Tobacco Use Types Packs/Day Years Used Date Smoking Tobacco: Never Assessed Comments Unknown Sex and Gender Information Value Date Recorded Sex Assigned at Not on file Legal Sex Female 7:41 PM EDT Gender Identity Not on file Sexual Orientation Not on file documented as of this encounter Plan of Treatment Not on file documented as of this encounter Visit Diagnoses Not on filedocumented in this encounter Care Teams Capsule Machine Operator Relationship Specialty Start Date End Date Jayden Christie MD [address] [place] [address] PCP - General Internal Medicine 05/29/25 documented as of this encounter
--- OUTSIDE RECORDS SUMMARY | 2025-10-30 09:41 | XMS_ITS | Encounter Summary ---
Author Organization [facility] Address [address] [place] [address] Care Team Providers Care Nurse Ob Name Role Phone Jayden Christie MD Primary Care Provider + [phone] Encounter Details Date Type Department Care Team (Latest Contact Info) Description 09/15/2025 Travel Social History Tobacco Use Types Packs/Day [...] week 09/15/2025 How often do you attend [facility] or cheondoism services? More than 4 times per year 09/15/2025 Do you belong to any clubs o r organizations such as tenriism groups, unions, fraternal or athletic groups, or [...] and heating? Not hard at all 09/15/2025 [facility] - Occupational Stress Questionnaire Answer Date [...] any time in the past 12 m [facility], were you homeless or living in a retirement (including now)? No 09/15/2025 [facility] Utilities Answer Date Recorded In the past 12 months has e electric, gas, oil, or water company [...] documented as of this encounter Care Teams Nurse Ob Relationship Specialty Start Date End Date Jayden Christie MD [address] [place] [address] PCP - General Internal Medicine 05/29/25 documented as of this encounter
--- OUTSIDE RECORDS SUMMARY | 2025-10-30 09:41 | XMS_ITS | Clinical Summary ---
Author Organization [facility] Address [address] [place] [address] Care Team Providers Care Emanations Analysis Technician Name Role Phone Jayden Christie MD Primary Care Provider [phone] Allergies Active Allergy Reactions Criticality Noted Date Comments Sulfa Drugs Nausea 11/13/2023 Medications bisoprolol (Zebeta) 5 MG tablet Take 1 tablet by mouth daily. 08/10/2025 Active levothyroxine (Synthroid, Levoxyl) 50 MCG tablet Take 1 tablet by mouth daily before breakfast. Active lisinopril 10 MG tablet Take 1 tablet by mouth daily. Active cholecalciferol (Vitamin D3) 1.25 MG (43371 UT) capsule Take 1 capsule by mouth 1 time per week for 8 doses. 8 capsule 09/16/2025 Active Active Problems No known active problems Encounters Date Type Department Care Team Description 09/15/2025 1:00 PM EST Consult Medical Office Building [facility] [address] [facility], [address] [place] [address] Erika Holguin MD Vitamin D deficiency (Primary Dx); Secondary hyperparathyroidism (CMS/HCC); Hyperparathyroidism (CMS/HCC) 09/15/2025 Orders Only External Location [address] [place] [address] Provider, External 09/15/2025 Travel 09/10/2025 Travel from Last 3 Months Social History Tobacco Use Types Packs/Day Years [...] week 09/15/2025 How often do you attend [facility] or latter-day services? More than 4 times per year 09/15/2025 Do you belong to any clubs o r organizations such as alevism groups, unions, fraternal or athletic groups, or [...] and heating? Not hard at all 09/15/2025 [facility] - Occupational [...] any time in the past 12 m [facility], were you homeless or living in a usp (including now)? No 09/15/2025 [facility] Utilities Answer Date Recorded In the past 12 months has th e [employer], gas, oil, or water [employer] threatened to shut off services in your home? No 09/15/2025 Comments Unknown Sex and Gender Information Value Date Recorded Sex Assigned at Not on file Legal Sex Female 7:41 PM EDT Gender Identity Not on file Sexual Orientation Not on file Last Filed Vital Signs Vital Sign Reading [...] Mass Index 26.38 09/15/2025 12:40 PM EST Plan of Treatment Health Maintenance Due Date Last Done Comments [facility]-Bone Density Scan 1950 [facility]-Depression Screening 1950 [facility]-/Child/Adol SDOH Screenings 1950 [facility]- SDOH Screenings 1969 [facility]-Adult SDOH Screenings 1969 CT Colonography 1996 Colonoscopy 1996 FIT-DNA 1996 FIT 1996 FOBT 1996 Sigmoidoscopy 1996 [facility]-Colorectal Cancer Screening 1996 [facility]-DTaP,Tdap,and Td Vaccine s (1 - Tdap) 01/16/1997 01/15/1997 [facility]-Zoster Vaccines (1 of 2) 2001 [id number] Vaccine (2 - season) 2025 03/31/2021 [facility]-Influenza Vaccine (#1) 2025 [facility]-RSV Vaccine: 60+ Years o r (1 - 1-dose 75+ series) 2026 [facility]-Pneumococcal Vaccine: 50 + Years Completed 11/15/2020, 12/25/2016 HPV Vaccines (No Doses Required) Completed [facility]-HIB Vaccines Aged Out No longer e [...] on patient's age to complete this topic Procedures Procedure Name Priority Date/Time Associated Diagnosis Comments POC ULTRASOUND 09/15/2025 from Last 3 Months Results * POC Imaging (09/15/2025) Anatomical Region Laterality Modality Pelvis Other 09/15/2025 us External Provider IMG POINT OF CARE ULTRASOUND F inal Result from Last 3 Months Insurance MEDICARE Care Teams Emanations Analysis Technician Relationship Specialty Start Date End Date Jayden Christie MD [address] [place] [address] PCP - General Internal Medicine 05/29/25
== END 2025-10-30 23:59 | disposition home or self-care (01) ==
LOC: RAD 09:39
PROVIDERS: PCP Internal Medicine Adolescent Medicine; Visit Provider Obstetrics & Gynecology Gynecology
DX: Z12.31 Encounter for screening mammogram for malignant neoplasm of breast (principal); R92.323 Mammographic fibroglandular density, bilateral breasts
CPT/HCPCS: 77063; 77067